=== PATIENT | male | born 1935 | race Caucasian/White ===

== ENCOUNTER 2024-07-31 12:53 | Inpatient (IN) | payer MEDICARE, BC ==
[~2024-07-31] VITALS: Ht 274.3 cm; Wt 69.8 kg
--- NOTE | 2024-07-31 13:11 | NUR ---
PT AMBULATED TO ROOM 9.
[2024-07-31] MEDS ORDERED: IPRATROPIUM-Albuterol 0.5MG-2.5MG/3 ML NEB ONE (13:20)
[2024-07-31] MEDS ORDERED: methylPREDNISolone SODIUM SUCC 125 MG/2 ML SDV IV ONE (13:20)
[2024-07-31] MEDS ORDERED: ADVAIR DISK1 INH (13:43)
[2024-07-31 13:57] LABS: BASO% 0.2 % (0-3); HEMATOCRIT 35.5 % (39.0-50.0); IMMATURE GRANULOCYTES 0.4 % (0.0-5.0); LYMPH% 3.1 % (15-41); MEAN CORPUSCULAR HGB 34.4 pG CALC (26.0-32.0); MEAN CORPUSCULAR HGB CONC 33.5 g/dL CAL (32.0-36.0); MONO% 4.5 % (2-13); NEUT# 11.91 thou/uL (1.82-7.42); NEUT% 91.8 % (42-76); RED BLOOD COUNT 3.46 mill/uL (4.70-6.10); RED CELL DISTRI WIDTH 14.4 % (11.5-15.5)
[2024-07-31 14:02] LABS: ALBUMIN 3.7 g/dL (3.2-5.0); BILIRUBIN, TOTAL 1.3 mg/dL (0.2-1.3); CREATININE 1.2 mg/dL (0.7-1.3); POTASSIUM 4.1 mmol/l (3.5-5.1)
[2024-07-31 14:04] LABS: HEMOGLOBIN 11.9 g/dl (14.0-18.0); MEAN CELL VOLUME 102.6 fL CALC (80.0-100.0)
[2024-07-31] MEDS ORDERED: FUROSEMIDE 40 MG/4 ML SDV IV ONE (14:25)
--- NOTE | 2024-07-31 14:36 | NUR ---
OS via nasal cannula at 2 L initiated
[2024-07-31] MEDS ORDERED: LEVOTHYROXIN112 MC1 PO (15:28)
[2024-07-31] MEDS ORDERED: ATORVASTATIN CA40 MG PO (15:29)
[2024-07-31] MEDS ORDERED: DUPIXENT (15:29)
[2024-07-31] MEDS ORDERED: LOPRESSOR25 M1 PO (15:30)
[2024-07-31] MEDS ORDERED: FINASTERIDE5 MG PO (15:30)
[2024-07-31] MEDS ORDERED: FLUTICASONE PRO1 AE1 (15:30)
[2024-07-31] MEDS ORDERED: ALBUTEROL108 MCG/AC (15:30)
[2024-07-31] MEDS ORDERED: AMLODIPINE BESY10 MG PO (15:30)
[2024-07-31] MEDS ORDERED: LOSARTAN POTAS100 MG PO (15:31)
[2024-07-31] MEDS ORDERED: HYDROCO/APAP1 TA9 PO (15:31)
[2024-07-31] MEDS ORDERED: LASIX 40 MG TAB40 MG PO (15:32)
[2024-07-31] MEDS ORDERED: WARFARIN3 MG PO (15:32)
--- NOTE | 2024-07-31 16:08 | NUR ---
report given to MS nurse
[2024-07-31] MEDS ORDERED: ACETAMINOPHEN 325 MG/TAB PO PRN (16:35)
[2024-07-31] MEDS ORDERED: IPRATROPIUM-Albuterol 0.5MG-2.5MG/3 ML NEB PRN (16:35)
[2024-07-31] MEDS ORDERED: HYDROcodone 5 MG/Acetaminophen 325 MG/COMBO PO PRN (16:35)
[2024-07-31] MEDS ORDERED: MAGNESIUM HYDROXIDE 30 ML UDC PO PRN (16:35)
[2024-07-31] MEDS ORDERED: FUROSEMIDE 40 MG/4 ML SDV IV SCH (16:35)
[2024-07-31] MEDS ORDERED: TAMSULOSIN0.4 MG PO (16:37)
--- NOTE | 2024-07-31 17:29 | NUR ---
PATIENT ARRIVED TO OK FROM ED; PATEINT A/O X3; WAS ON EROOM AIR WITH VIUSAL SOB, APPLIED 02 @2L WITH NO ISSUES; TELE LEAD INTACT AND WORKING; IV SITE ON LAC CLEAN AND INTCAT SALINE LOCKED; HEAD TO TOE WAS COMPLETED; PATEINT DOES HAVE A PRODUCTIVE COUGH; EDUCATED TEST FIXTURE DESIGNER LIGHT, DINNER TRAY WITHINR EACH; BED IN LOWEST POSTION;SAFEY MEASURES INPALCE
--- NOTE | 2024-07-31 17:40 | NUR ---
pt to floor via wheelchair
--- NOTE | 2024-07-31 17:41 | NUR ---
PT ADMISSION VITALS BP:132/72 P:62 O2:90 RA T:97.2 WT 69.4 KG
[2024-07-31 18:48] VITALS: BP 107/65
--- NOTE | 2024-07-31 19:20 | NUR ---
PATIENT OBSERVED RESTING IN BED. ALERT AND ABLE TO MAKE NEEDS KNOWN. ASSESSMENT COMPLETE. NO DISTRESS NOTED. O2 AT 2L VIA NC. NON PRODUCTIVE COUGH PRESENT. LUNG SOUNDS COARSE ON AUSCULTATION. NO COMPLAINTS OF PAIN. DENIES NEEDING ANYTHING AT THIS TIME. REMINDED PATIENT TO USE CALL MONTANEZ FOR ASSISTANCE FOR SAFETY REASONS. VERBALIZED UNDERSTANDING. BED REMAINS IN LOW POSITION. CALL MONTANEZ IN REACH.
[2024-07-31] MEDS ORDERED: ENOXAPARIN SODIUM 40 MG/0.4 ML SYR SC SCH (21:00)
[2024-07-31] MEDS ORDERED: FLUTICASONE/SALMETEROL 250 MCG/50 MCG PER DOSE INH IN SCH (21:00)
[2024-07-31] MEDS ORDERED: methylPREDNISolone Sod Succ 40 MG/ML SDV IV SCH (22:00)
--- NOTE | 2024-07-31 22:33 | NUR ---
patient sleeping at this time. no distress noted. O2 on @ 2l/NC
--- NOTE | 2024-08-01 00:30 | NUR ---
PATIENT REMAINS RESTING IN BED. DENIES NEEDING ANYTHING AT THIS TIME. BED REMAINS IN LOW POSITION. CALL MONTANEZ IN REACH.
[2024-08-01 04:34] VITALS: BP 109/61
--- NOTE | 2024-08-01 04:49 | NUR ---
PATIENT RESTING IN BED. NO COMPLAINTS VOICED AT THIS TIME. NON PRODUCTIVE COUGH REMAINS AT TIMES. BED REMAINS IN LOW POSITION. CALL MONTANEZ IN REACH.
[2024-08-01 05:27] LABS: HEMATOCRIT 33.2 % (39.0-50.0); MEAN CELL VOLUME 102.5 fL CALC (80.0-100.0); MEAN CORPUSCULAR HGB CONC 33.1 g/dL CAL (32.0-36.0); RED BLOOD COUNT 3.24 mill/uL (4.70-6.10); RED CELL DISTRI WIDTH 14.4 % (11.5-15.5)
--- NOTE | 2024-08-01 05:50 | NUR ---
CALLED RT TO UPDATE ON PATIENTS OXYGEN SAT STAYING AT 87%. PATIENT DOES NOT APPEAR IN DISTRESS. ENCOURAGED PATIENT NOT TO TRY TO BREATH RAPIDLY TO TRY TO BRING HIS OXYGEN SATURATION UP. UPON ENTERING ROOM OXYGEN NASAL CANNULA WAS OBSERVED OFF PATIENT. EDUCATED PATIENT OXYGEN NEEDS TO REMAIN ON. PATIENT VERBALIZED UNDERSTANDING.
[2024-08-01 05:55] LABS: ALBUMIN 3.1 g/dL (3.2-5.0); CREATININE 1.2 mg/dL (0.7-1.3); POTASSIUM 3.8 mmol/l (3.5-5.1); TOTAL PROTEIN 5.9 g/dL (6.3-8.2)
[2024-08-01] MEDS ORDERED: LEVOTHYROXINE SODIUM 112 MCG/TAB PO SCH (06:00)
--- NOTE | 2024-08-01 06:04 | NUR ---
RT GAVE NEB TREATMENT TO PATIENT. SHE INCREASED HIS OXYGEN TO 2.5L. PATIENT TOLERATED TX WELL. OXYGEN NOW UP TO 92%. PATIENT ALSO OBSERVED EXPELLING REYES PHELGM.
[2024-08-01 06:08] VITALS: BP 115/65
[2024-08-01 07:24] VITALS: BP 115/65
[2024-08-01] MEDS ORDERED: TAMSULOSIN HCL 0.4 MG CAP PO SCH (09:00)
[2024-08-01] MEDS ORDERED: amLODIPine BESYLATE 5 MG/TAB PO SCH (09:00)
[2024-08-01] MEDS ORDERED: LOSARTAN Potassium 50 MG/TAB PO SCH (09:00)
[2024-08-01] MEDS ORDERED: FINASTERIDE 5 MG/TAB PO SCH (09:00)
[2024-08-01] MEDS ORDERED: METOPROLOL TARTRATE 25 MG/TAB PO SCH ×2 (09:00→14:00)
--- NOTE | 2024-08-01 09:00 | NUR ---
PT IS SEEN AWAKE, ALERT, PLEASANT. LUNGS COARSE, PT WITH PRODUCTIVE COUGH THICK PHLEGM. 2.5 LPM NC. NO COMPLAINTS, PT WITH FAMILY AT BEDSIDE
--- NOTE | 2024-08-01 09:29 | NUR ---
THIS VALUATION MANAGER WAS INFORMED BY DICTIONARY EDITOR OF CRITICAL LAB VALUE PROTIME 48.5 SECONDS AND INR 5.0. PROVIDERS IS AWARE AT 0942.
[2024-08-01 09:30] LABS: PROTHROMBIN TIME 48.5 SECONDS (9.0-12.5)
[2024-08-01] MEDS ORDERED: AZITHROMYCIN 500 MG in SODIUM CHLORIDE 0.9% 250 ML IV SCH (11:30)
--- NOTE | 2024-08-01 12:00 | NUR ---
PT CONTINUES BEFORE, COUGH. NC TURNED UP TO 4 LPM PER 85% READING ON 2.5 LPM. NO COMPLAINTS, PT NOT IN DISTRESS.
[2024-08-01] MEDS ORDERED: CELEBREX100 M1 PO (12:30)
[2024-08-01] MEDS ORDERED: LOPRESSOR25 M1 PO (12:32)
[2024-08-01] MEDS ORDERED: ATORVASTATIN CA40 MG PO (12:36)
[2024-08-01] MEDS ORDERED: KLOR-CON M1010 MEQ PO (12:37)
[2024-08-01] MEDS ORDERED: SLOW FE45 MG PO (12:38)
[2024-08-01] MEDS ORDERED: MULTI VIT PO (12:38)
[2024-08-01] MEDS ORDERED: D350 MC1 PO (12:40)
[2024-08-01] MEDS ORDERED: POTASSIUM CHLORIDE 10 MEQ/TAB PO SCH (14:00)
[2024-08-01] MEDS ORDERED: warFARIN SODIUM 3 MG/TAB PO SCH (14:00)
[2024-08-01 16:04] VITALS: BP 116/59
--- NOTE | 2024-08-01 17:23 | NUR ---
PT WITH SHORTNESS OF BREATH WHEN AAMBULATING TO BR. HE RECOVERS FAIRLY WELL, ADVISED TO REST OFTEN. AT REST HE FEELS FINE.
[2024-08-01 19:21] VITALS: BP 128/61
--- NOTE | 2024-08-01 20:00 | NUR ---
RECEIVED REPORT FROM DAYSHIFT NURSE. PT NOTED SITTING UP IN BED FOWLERS, NASAL CANNULA IN PLACE ON 4L O2 NC. VISITOR AT BEDSIDE. PT IS A/OX3, DENIES ANY N/V/P. NURSING ASSESSMENT COMPLETED, PT BECOMES EXTREMELY SOB ON EXERTION. RECOMMENED PT USE BSC TO HELP PREVENT SOB TRYING TO AMBULATE TO [facility]. PT AGREED. IV SITE APPEARS HEALTHY AND INTACT, FLUSHES W/O DIFFICULTY. EDUCATED ON PLAN OF CARE AND MED SCHEDULE. CALL LIGHT WITHIN REACH AND SAFETY PRECAUTIONS IN PLACE.
--- NOTE | 2024-08-02 | NUR ---
PT LAYING IN BED SUPINE, RESTING COMFORTABLY AT THIS TIME WITH EYES CLOSED. NASAL CANNULA IN PLACE. NO S/S OF DISTRESS. CALL LIGHT WITHIN REACH AND SAFETY PRECAUTIONS IN PLACE.
[2024-08-02 04:42] VITALS: BP 119/61
[2024-08-02 05:20] LABS: BASO% 0.1 % (0-3); IMMATURE GRANULOCYTES 0.6 % (0.0-5.0); LYMPH% 5.1 % (15-41); MEAN CELL VOLUME 100.8 fL CALC (80.0-100.0); MEAN CORPUSCULAR HGB 35.4 pG CALC (26.0-32.0); MEAN CORPUSCULAR HGB CONC 35.1 g/dL CAL (32.0-36.0); MONO% 3.3 % (2-13); NEUT# 10.61 thou/uL (1.82-7.42); NEUT% 90.9 % (42-76); RED BLOOD COUNT 3.67 mill/uL (4.70-6.10); RED CELL DISTRI WIDTH 14.4 % (11.5-15.5)
[2024-08-02 05:46] LABS: ALBUMIN 3.4 g/dL (3.2-5.0); MAGNESIUM 2.1 mg/dL (1.6-2.3); POTASSIUM 3.6 mmol/l (3.5-5.1); TOTAL PROTEIN 6.4 g/dL (6.3-8.2)
[2024-08-02 07:00] VITALS: BP 118/54
--- NOTE | 2024-08-02 07:30 | NUR ---
SHIFT CHANGE REPORT, PT AWAKE ALERT AND ORIENTED RESTING IN BED, NO C/O PAIN, O2 @ 2L VIA NC IN PLACE, HAS PRODUCTIVE COUGH, STATES HE FEELS MUCH IMPROVED SINCE YESTERDAY, NEEDS ADDRESSED.
[2024-08-02 09:46] LABS: PROTHROMBIN TIME 43.9 SECONDS (9.0-12.5)
[2024-08-02 09:48] LABS: INTERNATIONAL NORMALIZED RATIO 4.5 RATIO (0.7-1.3)
[2024-08-02 10:38] VITALS: BP 129/54
[2024-08-02 14:50] VITALS: BP 114/51
--- NOTE | 2024-08-02 17:13 | NUR ---
SITTING UP AT BEDSIDE HAVING MEAL, REPORTS IMPROVED FEELINGS.
--- NOTE | 2024-08-02 18:27 | NUR ---
SEC JUST REPORTED TELE MONITOR CALLED REPORTING 10 BEATS V-TACH, ON ASSESSMENT PT HAD JUST USED COMMODE AND SETTLED BACK IN BED, HEART RATE 61
[2024-08-02 19:02] VITALS: BP 108/65
--- NOTE | 2024-08-02 19:48 | NUR ---
PATIENT SITTING UP IN BED WITH O2 VIA NASAL CANNULA IN PLACE AT 4LPM. O2 SAT AT THIS TIME IS 96%. PATIENT IS STILL SOB EVEN WHEN TALKING. ALERT AND ORIENTEDX3. PATIENT IS UP TO THE BSC TO VOID MARY URINE. TELE MONITOR IN PLACE AND READING PACED IN THE 60'S. SALINE LOCK TO LEFT FOREARM IN PLACE. SAFETY PRECAUTIONS REINFORCED. CALL LIGHT IN REACH. WILL CONT TO MONITOR.
[2024-08-02] MEDS ORDERED: ATORVASTATIN CALCIUM 40 MG/TAB PO SCH (21:00)
[2024-08-02] MEDS ORDERED: FLUTICASONE/SALMETEROL 250 MCG/50 MCG PER DOSE INH IN SCH (21:00)
--- NOTE | 2024-08-02 23:30 | NUR ---
PATIENT RESTING IN BED AT THIS TIME WITH O2 VIA NASAL CANNULA IN PLACE. CONT TO BE SOB EVEN AT REST. MEDICATED WITH TYLENOL FOR GENERALIZED PAIN AND SLEEP. SALINE LOCK TO LEFT FOREARM INTACT. TELE MONITOR IN PLACE AND CONT TO READ PACED IN THE 6O'S. CALL [facility]IGHT IN REACH[facility]
[2024-08-03 00:02] VITALS: BP 116/61
--- NOTE | 2024-08-03 02:06 | NUR ---
RESTING IN BED WITH HOB ELEVATED. O2 VIA NASAL CANNULA IN PLACE. EYES ARE CLOSED AND RESPS ARE UNLABORED AT THIS TIME. TELE MONITOR IN PLACE AND CONT TO READ PACED. CALL LIGHT IN REACH. WILL CONT TO MONITOR.
[2024-08-03 04:43] VITALS: BP 114/56
[2024-08-03 04:51] LABS: MEAN CORPUSCULAR HGB 34.5 pG CALC (26.0-32.0); MEAN CORPUSCULAR HGB CONC 34.2 g/dL CAL (32.0-36.0); RED BLOOD COUNT 3.07 mill/uL (4.70-6.10); RED CELL DISTRI WIDTH 14.4 % (11.5-15.5)
[2024-08-03 04:53] LABS: HEMOGLOBIN 10.6 g/dl (14.0-18.0)
[2024-08-03 05:03] LABS: BILIRUBIN, TOTAL 0.7 mg/dL (0.2-1.3); CREATININE 1.1 mg/dL (0.7-1.3); MAGNESIUM 2.3 mg/dL (1.6-2.3); POTASSIUM 3.4 mmol/l (3.5-5.1); TOTAL PROTEIN 5.9 g/dL (6.3-8.2)
--- NOTE | 2024-08-03 05:30 | NUR ---
PATIENT WENT TO RADIOLOGY FOR CXR WITH O2 AND NOW BACK IN BED. STILL SOB WITH ANY EXHERSION EVEN TALKING. STILL COURSE THROUGHOUT. MEDICATED WITH LASIX AND SOLU-MEDROL ORDERED. O2 VIA NASAL CANNULA AT 4LPM. TELE MONITOR IN PLACE AND REAING PACED. CALL LIGHT IN REACH. WILL CONT TO MONITOR.
--- NOTE | 2024-08-03 07:51 | NUR ---
PATIENT SITTING UP ON SIDE OF BED EATING BREAKFAST. BREATHING UNLABORED ON 4L NC. TELE INTACT. IV IN LFA SL;SITE CLEAN AND INTACT. PT DENIES ANY PAIN OR N/D/V AT THIS TIME. BSC AT BEDSIDE. PERSONAL ITEMS WELL CALL LIGHT WITHIN REACH. NO OTHER NEEDS AT THIS TIME. POC ONGOING.
[2024-08-03] MEDS ORDERED: LACTULOSE 20 GM/30 ML UDC PO PRN (09:00)
[2024-08-03] MEDS ORDERED: Polyethylene Glycol 3350 17 GM/PKT PO PRN (09:00)
[2024-08-03 09:31] LABS: INTERNATIONAL NORMALIZED RATIO 3.6 RATIO (0.7-1.3)
[2024-08-03 09:35] LABS: PROTHROMBIN TIME 35.4 SECONDS (9.0-12.5)
--- NOTE | 2024-08-03 10:57 | NUR ---
88 y/o male on warfarin due to Afib. INR goal 2.0-3.0. Warfarin ordered pharmacy to dose. INR on 08/03/24 is 3.6. Hgb 10.6. Previous INR on 08/02/24 was 4.5. Warfarin held on 08/02/24. Continue to hold warfarin today 08/03. Plan to restart warfarin tomorrow.
[2024-08-03] MEDS ORDERED: CEFEPIME HYDROCHLORIDE 2 GM in SODIUM CHLORIDE 0.9% 100 ML IV SCH (11:00)
[2024-08-03 11:02] VITALS: BP 105/84
[2024-08-03] MEDS ORDERED: AZITHROMYCIN 500 MG in DEXTROSE 5% 250 ML IV SCH (11:30)
--- NOTE | 2024-08-03 12:45 | NUR ---
PATIENT LYING IN BED WATCHING TV. SONS AT BEDSIDE. BREATHING UNLABORED ON 4L NC. TELE INTACT. IV IN LFA INFUSING FLUIDS PER EMAR;SITE CLEAN AND INTACT. PT DENIES ANY PAIN OR N/D/V AT THIS TIME. BED IN LOWEST POSITION. PERSONAL ITEMS WELL CALL LIGHT WITHN REACH. NO NEEDS AT THIS TIME. POC ONGOING.
[2024-08-03] MEDS ORDERED: GUAIFENESIN 200 MG/10 ML UDC PO PRN (13:45)
[2024-08-03 15:52] VITALS: BP 124/73
--- NOTE | 2024-08-03 16:45 | NUR ---
PATIENT SITTING UP ON SIDE OF BED WATCHING TV. SONS AT BEDSIDE. BREATHING UNLABORED ON 4L NC. TELE INTACT. IV IN LFA SL;SITE CLEAN AND INTACT. PT DENIES ANY PAIN OR N/D/V AT THIS TIME. BED IN LOWEST POSITION. PERSONAL ITEMS WELL CALL LIGHT WITHIN REACH. POC ONGOING.
[2024-08-03 18:47] VITALS: BP 145/68
--- NOTE | 2024-08-03 19:50 | NUR ---
PT RESTING IN BED NO DISTRESS NOTED ON ASSESSMENT. PT ON NC 4L O2 READING 96% NURSE DECREASED TO 3L O2 SUSTAINING AT 96%. LUNGS SOUNDS COARSE. OTHER VS WNL. IV FLUSHED WORKING PROPERLY SL. SKIN WITH SCATTERED BRUISING NO EDEMA WITH CATHERINE HOSE ON. CALL LIGHT WITHIN REACH PT STATED UNDERSTANDING ON HOW TO USE IT. PLAN OF CARE ONGOING.
[2024-08-03 23:42] VITALS: BP 93/53
--- NOTE | 2024-08-04 | NUR ---
PT SLEEPING EASILY AROUSABLE NO DISTRESS NOTED. IV FLUSHED AND ABX GIVEN. CALL LIGHT WITHIN REACH. PLAN OF CARE ONGOING.
--- NOTE | 2024-08-04 04:00 | NUR ---
PT SLEEPING EASILY AROUSABLE NO DISTRESS NOTED. CALL LIGHT WITHIN REACH. PLAN OF CARE ONGOING.
[2024-08-04 04:09] VITALS: BP 93/49
[2024-08-04 05:25] LABS: BASO% 0.1 % (0-3); HEMATOCRIT 31.4 % (39.0-50.0); HEMOGLOBIN 10.7 g/dl (14.0-18.0); IMMATURE GRANULOCYTES 0.6 % (0.0-5.0); LYMPH% 3.6 % (15-41); MEAN CORPUSCULAR HGB 34.4 pG CALC (26.0-32.0); MEAN CORPUSCULAR HGB CONC 34.1 g/dL CAL (32.0-36.0); MONO% 2.5 % (2-13); NEUT# 11.49 thou/uL (1.82-7.42); NEUT% 93.2 % (42-76); RED BLOOD COUNT 3.11 mill/uL (4.70-6.10); RED CELL DISTRI WIDTH 14.4 % (11.5-15.5)
[2024-08-04 05:42] LABS: ALBUMIN 2.8 g/dL (3.2-5.0); BILIRUBIN, TOTAL 0.9 mg/dL (0.2-1.3); CREATININE 1.1 mg/dL (0.7-1.3); MAGNESIUM 2.3 mg/dL (1.6-2.3); POTASSIUM 3.7 mmol/l (3.5-5.1); TOTAL PROTEIN 5.3 g/dL (6.3-8.2)
[2024-08-04 06:25] VITALS: BP 104/51
[2024-08-04] MEDS ORDERED: OMNICEF300 MG PO (09:00)
[2024-08-04] MEDS ORDERED: PREDNISONE10 MG PO (09:02)
[2024-08-04 09:21] LABS: INTERNATIONAL NORMALIZED RATIO 3.2 RATIO (0.7-1.3)
[2024-08-04 09:27] VITALS: BP 117/60
[2024-08-04 09:50] LABS: PROTHROMBIN TIME 32.4 SECONDS (9.0-12.5)
--- NOTE | 2024-08-04 11:03 | NUR ---
Pt is being discharged at this time pt is leaving with spouse in a wheel chair. Pt is going homw with oxygen and home health. pt undeerstands all discharge instructions and medications. IV is removed and site appears clean. no concerns at this time.
--- NOTE | 2024-08-04 11:32 | NUR ---
Patient alert and oriented x4 resting in the room, daughter at bedside, clear for discharge, vitals stable, no complains of pain.
== END 2024-08-04 11:15 | disposition home health service (06) | DRG 291 ==
LOC: ED 12:53 → ED-I 14:01 → ED 14:01 → MS2 15:25
PROVIDERS: Family Medicine; Nurse Practitioner Family; ADMIT Internal Medicine; ATTEND Internal Medicine
DX: I11.0 Hypertensive heart disease with heart failure (principal); J18.9 Pneumonia, unspecified organism; J96.01 Acute respiratory failure with hypoxia; J44.1 Chronic obstructive pulmonary disease with (acute) exacerbation; J44.0 Chronic obstructive pulmonary disease with (acute) lower respiratory infection; I50.9 Heart failure, unspecified; I25.10 Atherosclerotic heart disease of native coronary artery without angina pectoris; E03.9 Hypothyroidism, unspecified; I48.91 Unspecified atrial fibrillation; Z95.1 Presence of aortocoronary bypass graft; Z87.891 Personal history of nicotine dependence; Z79.01 Long term (current) use of anticoagulants
CPT/HCPCS: J0456; J0692; J0696; J1650; J1940